=== PATIENT | female | born 1990 | race Caucasian/White ===

== ENCOUNTER → 2017-04-25 | Outpatient (CLI) | payer OTHER ==
[~2017-04-25] MED LIST: BCPs; Bactroban22 GM TOP; IBUP600 PO; IBUP800 PO; Percocet 5-3251 EACH PO; V R FATIGUE RE PO; Verotin-Gr Cap1 EACH PO
[2017-04-26 10:05] LABS: Source VAG/CERVIX
[2017-04-26 11:28] LABS: Candida species (DNA Probe) Negative (NEGATIVE); G. vaginalis (DNA Probe) Negative (NEGATIVE); T. vaginalis (DNA Probe) Negative (NEGATIVE)
== END | disposition home or self-care (01) ==
LOC: LAB SHORT 10:31
PROVIDERS: Advanced Practice Midwife
DX: Z01.419 Encounter for gynecological examination (general) (routine) without abnormal findings (principal); N89.8 Other specified noninflammatory disorders of vagina
CPT/HCPCS: 87480; 87510; 87660; G0123

== ENCOUNTER 2017-05-09 08:26 | Day surgery (SDC) | payer OTHER | END 2017-05-09 23:28 | disposition home or self-care (01) | LOC: MOI US 08:26 | PROC: 0HBU3ZX Excision of Left Breast, Percutaneous Approach, Diagnostic (ICD-10-PCS; principal; 2017-05-09) | DX: R92.8 Other abnormal and inconclusive findings on diagnostic imaging of breast (principal); N63.0 Unspecified lump in unspecified breast | CPT/HCPCS: 19083; 77065; 88305 ==

== ENCOUNTER 2018-07-11 15:54 | Emergency (ER) | payer OTHER ==
[~2018-07-11] VITALS: Ht 165.1 cm; Wt 117.9 kg
[2018-07-11] MEDS ORDERED: Bactrim Ds Tab1 EACH PO (16:34)
[2018-07-11] MEDS ORDERED: Keflex500 MG PO (16:34)
[2018-07-11] MEDS ORDERED: Norco 5-325 Ta1 EACH PO (17:01)
== END 2018-07-11 17:10 | disposition home or self-care (01) ==
LOC: ER 15:54
DX: L03.116 Cellulitis of left lower limb (principal); L02.612 Cutaneous abscess of left foot; F17.210 Nicotine dependence, cigarettes, uncomplicated; Z88.1 Allergy status to other antibiotic agents
CPT/HCPCS: A9270-GY

== ENCOUNTER 2018-10-06 22:25 | Emergency (ER) | payer OTHER ==
[~2018-10-06] VITALS: Ht 165.1 cm; Wt 86.2 kg
[~2018-10-06 22:25] MED LIST changes: +Bactrim Ds Tab1 EACH PO; +Keflex500 MG PO; +Norco 5-325 Ta1 EACH PO
[2018-10-06] MEDS ORDERED: IBUP600 PO (22:49)
[2018-10-06] MEDS ORDERED: Cleocin HCl300 MG PO (22:49)
== END 2018-10-06 23:03 | disposition home or self-care (01) ==
LOC: ER 22:25
DX: K04.7 Periapical abscess without sinus (principal); Z88.0 Allergy status to penicillin; Z79.899 Other long term (current) drug therapy; F17.210 Nicotine dependence, cigarettes, uncomplicated
CPT/HCPCS: 99282

== ENCOUNTER 2018-10-15 08:20 | Emergency (ER) | payer OTHER ==
[~2018-10-15] VITALS: Ht 165.1 cm; Wt 85.3 kg
[~2018-10-15 08:20] MED LIST changes: +Cleocin HCl300 MG PO
== END 2018-10-15 10:15 | disposition home or self-care (01) ==
LOC: ER 08:20
DX: K04.7 Periapical abscess without sinus (principal); F17.200 Nicotine dependence, unspecified, uncomplicated
CPT/HCPCS: 10160; 96365-59; 96375-59; 99283-25; J1885

== ENCOUNTER 2018-10-16 08:35 | Emergency (ER) | payer OTHER ==
[~2018-10-16] VITALS: Ht 165.1 cm; Wt 81.7 kg
== END 2018-10-16 09:25 | disposition home or self-care (01) ==
LOC: ER 08:35
DX: K04.7 Periapical abscess without sinus (principal); F17.200 Nicotine dependence, unspecified, uncomplicated; Z88.1 Allergy status to other antibiotic agents
CPT/HCPCS: 99282

== ENCOUNTER 2019-08-20 07:34 | Emergency (ER) | payer OTHER ==
[~2019-08-20] VITALS: Ht 165.1 cm; Wt 99.8 kg
[2019-08-20] MEDS ORDERED: Bactrim Ds Tab1 EACH PO (08:32)
== END 2019-08-20 08:35 | disposition home or self-care (01) ==
LOC: ER 07:34
DX: L03.311 Cellulitis of abdominal wall (principal); L02.211 Cutaneous abscess of abdominal wall; F15.10 Other stimulant abuse, uncomplicated; F11.10 Opioid abuse, uncomplicated; Z86.14 Personal history of Methicillin resistant Staphylococcus aureus infection; Z88.1 Allergy status to other antibiotic agents; F17.290 Nicotine dependence, other tobacco product, uncomplicated
CPT/HCPCS: 99282

== ENCOUNTER 2020-05-21 13:25 | Emergency (ER) | payer OTHER ==
[~2020-05-21] VITALS: Ht 165.1 cm; Wt 102.1 kg
[2020-05-21] MEDS ORDERED: NEOPOLHCSU LEFTEAR (15:29)
== END 2020-05-21 15:41 | disposition home or self-care (01) ==
LOC: ER 13:25
DX: H60.92 Unspecified otitis externa, left ear (principal); Z88.0 Allergy status to penicillin; F17.290 Nicotine dependence, other tobacco product, uncomplicated
CPT/HCPCS: 99282

== ENCOUNTER 2022-03-09 09:56 | Emergency (ER) | payer OTHER ==
[~2022-03-09] VITALS: Ht 165.1 cm; Wt 108.9 kg
[~2022-03-09 09:56] MED LIST changes: +NEOPOLHCSU LEFTEAR
[2022-03-09] MEDS ORDERED: BUPRENORPHIN-N1 EAC5 SL (10:32)
[2022-03-09] MEDS ORDERED: SEROQUEL50 MG PO (10:33)
[2022-03-09] MEDS ORDERED: LAMOTRIGINE25 M4 PO (10:33)
[2022-03-09] MEDS ORDERED: MONDOXYNE NL100 MG PO (10:35)
== END 2022-03-09 10:37 | disposition home or self-care (01) ==
LOC: ER 09:56
DX: R22.0 Localized swelling, mass and lump, head (principal); F17.290 Nicotine dependence, other tobacco product, uncomplicated; Z88.0 Allergy status to penicillin
CPT/HCPCS: J1100

== ENCOUNTER 2024-01-10 10:11 | Emergency (ER) | payer OTHER ==
[~2024-01-10] VITALS: Ht 165.1 cm; Wt 94.8 kg
[~2024-01-10 10:11] MED LIST changes: +BUPRENORPHIN-N1 EAC5 SL; +LAMOTRIGINE25 M4 PO; +MONDOXYNE NL100 MG PO; +SEROQUEL50 MG PO
[2024-01-10 10:37] VITALS: BP 119/83
[2024-01-10] MEDS ORDERED: DiphenhydrAMINE HCL 25 MG Cap PO ONE (10:40)
[2024-01-10] MEDS ORDERED: EPIPEN0.3 MG/0.1 SC (10:46)
[2024-01-10] MEDS ORDERED: CLIN300 PO (10:46)
== END 2024-01-10 10:44 | disposition home or self-care (01) ==
LOC: ER 10:11
DX: L29.9 Pruritus, unspecified (principal); T36.1X5A Adverse effect of cephalosporins and other beta-lactam antibiotics, initial encounter; T37.3X5A Adverse effect of other antiprotozoal drugs, initial encounter; K04.7 Periapical abscess without sinus; Z88.0 Allergy status to penicillin; Z79.899 Other long term (current) drug therapy; F17.290 Nicotine dependence, other tobacco product, uncomplicated
CPT/HCPCS: 99282; A9270